=== PATIENT | male | born 1985 | race Hispanic/Latino ===

== ENCOUNTER 2017-09-20 14:13 | Emergency (ER) | payer MEDICAID, OTHER ==
[2017-09-20 14:42] LABS: RAPID GROUP A STREP POSITIVE (NEGATIVE)
[2017-09-20] MEDS ORDERED: ACETAMINOPHEN 325 MG TAB ONE (14:44)
[2017-09-20] MEDS ORDERED: KETOROLAC TROMETHAMINE 60 MG/2 ML VIAL ONE (14:44)
== END 2017-09-20 15:01 | disposition home or self-care (01) ==
LOC: EDH 14:13
DX: J02.0 Streptococcal pharyngitis (principal); R50.81 Fever presenting with conditions classified elsewhere; Z87.891 Personal history of nicotine dependence
CPT/HCPCS: 87804 ×2; 87880; 96372; 99284; J1885

== ENCOUNTER 2019-06-17 20:44 | Emergency (ER) | payer MEDICAID, OTHER | END 2019-06-17 21:35 | disposition home or self-care (01) | LOC: EDH 20:44 | DX: T18.128A Food in esophagus causing other injury, initial encounter (principal); X58.XXXA Exposure to other specified factors, initial encounter; Y93.89 Activity, other specified; Y92.89 Other specified places as the place of occurrence of the external cause; Y99.8 Other external cause status | CPT/HCPCS: 70490 ==